=== PATIENT | male | born 1985 | race Caucasian/White ===

== ENCOUNTER 2021-01-30 06:41 | Emergency (ER) | payer SELFPAY ==
[~2021-01-30] VITALS: Ht 180.3 cm; Wt 100.0 kg
[2021-01-30 06:41] VITALS: BP 142/95
[2021-01-30] MEDS ORDERED: IBUP-1780 PO (06:55)
[2021-01-30] MEDS ORDERED: BACI28.35 TP (06:55)
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
[2021-01-30] MEDS ORDERED: IBUPROFEN 800 MG (MOTRIN) TAB PO ONE (07:00)
== END 2021-01-30 07:01 | disposition home or self-care (01) ==
LOC: ER FS 06:44
DX: S99.912A Unspecified injury of left ankle, initial encounter (principal); L03.115 Cellulitis of right lower limb; Z72.0 Tobacco use; Y04.2XXA Assault by strike against or bumped into by another person, initial encounter
CPT/HCPCS: 99283